=== PATIENT | male | born 1985 | race Caucasian/White ===

== ENCOUNTER → 2016-05-13 | Emergency (ER) | payer SELFPAY ==
--- NOTE | 2016-05-13 13:16 | ED NURSING NOTES ---
Clinical Report - Nurses [facility] [address] [place] [address] 05/13/2016 11:51 Patient: BARBARA GRANADOS TRIAGE Triage time 12:48 May 13 2016. Acuity: LEVEL 4. Chief Complaint: RIGHT EAR PAIN. --12:57 Shae Cook R.N. Weight: 108.8 kg estimated. Height/Length: 68 inches. BMI: 36.5. --12:47 Shae Cook R.N. Medications None. --12:53 Shae Cook R.N. Allergies No Known Drug Allergy. --12:52 Shae Cook R.N. History Arrived by private vehicle. Historian: patient. Accompanied by family. This started yesterday. He has had ear drainage. No fever, nasal discharge or sinus pain. 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 PAST MEDICAL HX: Negative. Immunizations: up-to-date. SOCIAL HX: Never smoker. No alcohol use or drug use. No infectious disease exposure. FALL RISK ASSESSMENT: Fall risk assessment completed. No fall risk identified. NUTRITIONAL RISK ASSESSMENT: The nutritional risk assessment revealed no deficiencies. FUNCTIONAL ASSESSMENT: Functional assessment: no impairments noted. LEARNING NEEDS ASSESSMENT: The learning needs assessment revealed no barriers. SKIN INTEGRITY ASSESSMENT: Skin integrity risk assessment completed. No skin integrity risk identified. --12:57 Shae Cook R.N. PROBLEMS: Back Injury. Back Pain. --12:53 Shae Cook R.N. ADDITIONAL SURGERIES: Shoulder Surgery. --12:53 Shae Cook R.N. Interventions ID band on patient. To room. --12:57 Shae Cook R.N. PHYSICAL ASSESSMENT GENERAL / NEURO / PSYCH: Alert. Appears in no acute distress. HEENT: No facial asymmetry noted. Pain upon movement of the right auricle. Left ear within normal limits. RESPIRATORY: Respirations not labored. CVS: Capillary refill less than 2 seconds. SKIN: Skin is warm and dry. --12:57 Shae Cook R.N. NURSING PROGRESS NOTES Two patient identifiers checked. Call light placed in reach. Side rails up. Bed placed in lowest position. Brakes of bed on. Patient ready for evaluation. --12:58 Shae Cook R.N. DISPOSITION / DISCHARGE Condition at departure: improved. No learning barriers present. Discharge instructions provided and reviewed with the family. Reviewed referral to a primary care physician. The patient was discharged home. He left the Emergency Department ambulatory and via private vehicle. FALL RISK ASSESSMENT: Fall risk assessment completed. No fall risk identified. --22:39 Shae Cook R.N. Locked/Released at 05/13/2016 22:39 by Shae Cook R.N.
--- NOTE | 2016-05-13 13:16 | ED CLINICAL REPORT ---
Clinical Report - Physicians/Mid Levels [facility] [address] [place] [address] 05/13/2016 11:51 Patient: BARBARA GRANADOS Time Seen: 12:51; initial patient contact. Arrived- By private vehicle. Historian- patient. HISTORY OF PRESENT ILLNESS Chief Complaint: EARACHE. HEARING LOSS. Modifying factors. Not worsened by anything. Not relieved by anything. This started today man with daughter interpreting states he has right ear pain and pressure with inability to hear for several days. and is still present. Location- right ear. The pain is described as moderate. The patient has had ear pain and hearing loss. No ear drainage, nasal discharge or congestion or sinus pressure. Similar symptoms previously: Recent medical care: Not recently seen/assessed. REVIEW OF SYSTEMS No fever or chills. All systems otherwise negative, except as recorded above. PAST HISTORY See nurses notes. Problems: Back Injury. Back Pain. Medications: None. Allergies: No Known Drug Allergy. SOCIAL HISTORY No alcohol use or drug use. FAMILY HISTORY Negative. ADDITIONAL NOTES The nursing notes have been reviewed with agreement regarding the chief complaint, HPI, ROS, PMH and patient medications and allergies. PHYSICAL EXAM Appearance: Alert. No acute distress. Ear (left): Left ear normal. Left tympanic membrane normal. Ear (right): There is cerumen impaction in the external canal. Right ear normal. Nose: Nose normal. Throat: Pharynx normal. Neck: Normal inspection. Neck supple. PROGRESS AND PROCEDURES Removal of Ear Cerumen: The patient was cooperative. Oil instilled prior to procedure. Removal of cerumen from right ear using syringe irrigation was performed successfully. Following the procedure the patient was stable. No complications. Course of Care: Patient is stable. The patient's symptoms are now gone. Physical exam findings are improved. CLINICAL IMPRESSION Impacted cerumen right ear. INSTRUCTIONS Warnings: Further evaluation is necessary. It is very important to follow up with a physician. Prescription Medications: Domeboro otic solution: instill 5 drops into the affected ear four times daily for 5 days until symptoms improve. Dispense one (1) bottle. One refill. Substitution is permissible. Understanding of the discharge instructions verbalized by patient and family. (Electronically signed by Xiomara Bruce PA-C 05/13/2016 22:25)
--- NOTE | 2016-05-13 13:16 | ED NURSING NOTES ---
Clinical Report - Nurses [facility] [address] [place] [address] 05/13/2016 11:51 Patient: BARBARA GRANADOS TRIAGE Triage time 12:48 May 13 2016. Acuity: LEVEL 4. Chief Complaint: RIGHT EAR PAIN. --12:57 Shae Cook R.N. Weight: 108.8 kg estimated. Height/Length: 68 inches. BMI: 36.5. --12:47 Shae Cook R.N. Medications None. --12:53 Shae Cook R.N. Allergies No Known Drug Allergy. --12:52 Shae Cook R.N. History Arrived by private vehicle. Historian: patient. Accompanied by family. This started yesterday. He has had ear drainage. No fever, nasal discharge or sinus pain. 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 PAST MEDICAL HX: Negative. Immunizations: up-to-date. SOCIAL HX: Never smoker. No alcohol use or drug use. No infectious disease exposure. FALL RISK ASSESSMENT: Fall risk assessment completed. No fall risk identified. NUTRITIONAL RISK ASSESSMENT: The nutritional risk assessment revealed no deficiencies. FUNCTIONAL ASSESSMENT: Functional assessment: no impairments noted. LEARNING NEEDS ASSESSMENT: The learning needs assessment revealed no barriers. SKIN INTEGRITY ASSESSMENT: Skin integrity risk assessment completed. No skin integrity risk identified. --12:57 Shae Cook R.N. PROBLEMS: Back Injury. Back Pain. --12:53 Shae Cook R.N. ADDITIONAL SURGERIES: Shoulder Surgery. --12:53 Shae Cook R.N. Interventions ID band on patient. To room. --12:57 Shae Cook R.N. PHYSICAL ASSESSMENT GENERAL / NEURO / PSYCH: Alert. Appears in no acute distress. HEENT: No facial asymmetry noted. Pain upon movement of the right auricle. Left ear within normal limits. RESPIRATORY: Respirations not labored. CVS: Capillary refill less than 2 seconds. SKIN: Skin is warm and dry. --12:57 Shae Cook R.N. NURSING PROGRESS NOTES Two patient identifiers checked. Call light placed in reach. Side rails up. Bed placed in lowest position. Brakes of bed on. Patient ready for evaluation. --12:58 Shae Cook R.N. DISPOSITION / DISCHARGE Condition at departure: improved. No learning barriers present. Discharge instructions provided and reviewed with the family. Reviewed referral to a primary care physician. The patient was discharged home. He left the Emergency Department ambulatory and via private vehicle. FALL RISK ASSESSMENT: Fall risk assessment completed. No fall risk identified. --22:39 Shae Cook R.N. Locked/Released at 05/13/2016 22:39 by Shae Cook R.N.
--- NOTE | 2016-05-13 13:16 | ED CLINICAL REPORT ---
Clinical Report - Physicians/Mid Levels [facility] [address] [place] [address] 05/13/2016 11:51 Patient: BARBARA GRANADOS Time Seen: 12:51; initial patient contact. Arrived- By private vehicle. Historian- patient. HISTORY OF PRESENT ILLNESS Chief Complaint: EARACHE. HEARING LOSS. Modifying factors. Not worsened by anything. Not relieved by anything. This started today man with daughter interpreting states he has right ear pain and pressure with inability to hear for several days. and is still present. Location- right ear. The pain is described as moderate. The patient has had ear pain and hearing loss. No ear drainage, nasal discharge or congestion or sinus pressure. Similar symptoms previously: Recent medical care: Not recently seen/assessed. REVIEW OF SYSTEMS No fever or chills. All systems otherwise negative, except as recorded above. PAST HISTORY See nurses notes. Problems: Back Injury. Back Pain. Medications: None. Allergies: No Known Drug Allergy. SOCIAL HISTORY No alcohol use or drug use. FAMILY HISTORY Negative. ADDITIONAL NOTES The nursing notes have been reviewed with agreement regarding the chief complaint, HPI, ROS, PMH and patient medications and allergies. PHYSICAL EXAM Appearance: Alert. No acute distress. Ear (left): Left ear normal. Left tympanic membrane normal. Ear (right): There is cerumen impaction in the external canal. Right ear normal. Nose: Nose normal. Throat: Pharynx normal. Neck: Normal inspection. Neck supple. PROGRESS AND PROCEDURES Removal of Ear Cerumen: The patient was cooperative. Oil instilled prior to procedure. Removal of cerumen from right ear using syringe irrigation was performed successfully. Following the procedure the patient was stable. No complications. Course of Care: Patient is stable. The patient's symptoms are now gone. Physical exam findings are improved. CLINICAL IMPRESSION Impacted cerumen right ear. INSTRUCTIONS Warnings: Further evaluation is necessary. It is very important to follow up with a physician. Prescription Medications: Domeboro otic solution: instill 5 drops into the affected ear four times daily for 5 days until symptoms improve. Dispense one (1) bottle. One refill. Substitution is permissible. Understanding of the discharge instructions verbalized by patient and family. (Electronically signed by Xiomara Bruce PA-C 05/13/2016 22:25)
--- NOTE | 2016-05-13 22:39 | ED MED RECONCILIATION SUMMARY ---
Patient: CHRISTOPH CHAPABARBARA BERRY Medication Reconciliation Report [facility] VisitID: [id number] [address] [place] [address] 30y, M Registration Date/Time: 05/13/2016 Weight: 108.8 kg Height/Length: 68 in. BMI: 36.5 ALLERGIES: No Known Drug Allergy The patient's Home Medications are listed below: NONE. The source(s) of the original Home Medication information: Not obtained. The following Medications were given to the patient in the Emergency Department: None. The following Medications were prescribed to the patient: Domeboro otic solution: instill 5 drops into the affected ear four times daily for 5 days until symptoms improve. Dispense one (1) bottle. One refill. Substitution is permissible. -- Xiomara Bruce PA-C
--- NOTE | 2016-05-13 22:39 | ED MAR SUMMARY ---
..... Medication Administration Record [facility] [address] [place] [id number] Patient: CHRISTOPH CHAPAITEZMICHAELMason HENDERSON Visit ID: [id number] 30y, M Weight: 108.8 kg Height/Length: 68 in BMI: 36.5 ALLERGIES: No Known Drug Allergy
--- NOTE | 2016-05-13 22:39 | ED DISCHARGE INSTRUCTIONS ---
Patient: CHRISTOPH PIRES BARBARA HENDERSON General Instructions [facility] VisitID: [id number] [place] [address] 30y, M Registration Date/Time: 05/13/2016 Impacted cerumen right ear. INSTRUCTIONS Warnings: Further evaluation is necessary. It is very important to follow up with a physician. Prescription Medications: Domeboro otic solution: instill 5 drops into the affected ear four times daily for 5 days until symptoms improve. Dispense one (1) bottle. One refill. Substitution is permissible. Understanding of the discharge instructions verbalized by patient and family. ADDITIONAL INFORMATION Earwax (Treated) Everyone produces earwax from the lining of the ear canal. It serves to lubricate and protect the ear. The wax that forms in the canal slowly moves toward the outside of the ear and falls out. Sometimes there will be a build-up of wax in the ear canal causing a blockage and loss of hearing. An ear wax buildup was removed from your ear today. Home Care Preventing Future Problems If you have a tendency to build up wax in the ear canal, you should clear the wax at home on a regular basis (about once every six months ) before it causes discomfort. Unless a prescription medicine was given, you may use an qvzc-psk-pcgwvfw product made for clearing earwax (such as Debrox or Murine Earwax Drops). These contain carbamide peroxide and are available [id number] in a kit with a small bulb syringe. To use: lie down with the blocked ear facing upward. Apply one dropper full of medicine and wait a few minutes. Wiggle the outer ear to get the solution to enter the canal. Lean over a sink or basin with the blocked ear turned downward. Use a rubber bulb syringe filled with LUKEWARM water to rinse the ear several times. Use gentle pressure only. You may need to repeat the irrigation several times before the wax flows out. If you are having trouble draining all of the water out of your ear canal after this procedure, you may put a few drops of rubbing alcohol into the ear canal. This will help evaporate the remaining water. Do Not DO NOT use cold water to rinse the ear since this will make you dizzy. DO NOT perform this procedure if you have an ear infection (ear pain, fever, or fluid draining from the ear). DO NOT perform this procedure if you have a punctured eardrum. DO NOT use cotton applicators (Q-tips), matches, toothpicks, magaly pins, keys or other objects to clean the ear canal. This can cause infection of the ear canal or rupture of the eardrum. Because of their size and shape, it is common for cotton applicators to push the ear wax deeper into the ear canal instead of removing it. This can make matters worse. Follow Up with your doctor or this facility as directed by our staff. Get Prompt Medical Attention if any of the following occur: Worsening ear pain Fever of 100.4F (38C) or higher, or as directed by your healthcare provider Hearing does not return to normal after three days of treatment Fluid drainage or bleeding from the ear canal Swelling, redness or tenderness of the outer ear Headache, neck pain or stiff neck You have been given the following additional information: Ear Wax, Treated (Electronically signed by Xiomara Bruce PA-C 05/13/2016 22:25)
--- NOTE | 2016-05-13 22:39 | ED DISCHARGE INSTRUCTIONS ---
Patient: CHRISTOPH PIRES BARBARA HENDERSON General Instructions [facility] VisitID: [id number] [place] [address] 30y, M Registration Date/Time: 05/13/2016 Impacted cerumen right ear. INSTRUCTIONS Warnings: Further evaluation is necessary. It is very important to follow up with a physician. Prescription Medications: Domeboro otic solution: instill 5 drops into the affected ear four times daily for 5 days until symptoms improve. Dispense one (1) bottle. One refill. Substitution is permissible. Understanding of the discharge instructions verbalized by patient and family. ADDITIONAL INFORMATION Earwax (Treated) Everyone produces earwax from the lining of the ear canal. It serves to lubricate and protect the ear. The wax that forms in the canal slowly moves toward the outside of the ear and falls out. Sometimes there will be a build-up of wax in the ear canal causing a blockage and loss of hearing. An ear wax buildup was removed from your ear today. Home Care Preventing Future Problems If you have a tendency to build up wax in the ear canal, you should clear the wax at home on a regular basis (about once every six months ) before it causes discomfort. Unless a prescription medicine was given, you may use an yier-ttp-xtaumsw product made for clearing earwax (such as Debrox or Murine Earwax Drops). These contain carbamide peroxide and are available fvmf-lfh-fqltbdg in a kit with a small bulb syringe. To use: lie down with the blocked ear facing upward. Apply one dropper full of medicine and wait a few minutes. Wiggle the outer ear to get the solution to enter the canal. Lean over a sink or basin with the blocked ear turned downward. Use a rubber bulb syringe filled with LUKEWARM water to rinse the ear several times. Use gentle pressure only. You may need to repeat the irrigation several times before the wax flows out. If you are having trouble draining all of the water out of your ear canal after this procedure, you may put a few drops of rubbing alcohol into the ear canal. This will help evaporate the remaining water. Do Not DO NOT use cold water to rinse the ear since this will make you dizzy. DO NOT perform this procedure if you have an ear infection (ear pain, fever, or fluid draining from the ear). DO NOT perform this procedure if you have a punctured eardrum. DO NOT use cotton applicators (Q-tips), matches, toothpicks, magaly pins, keys or other objects to clean the ear canal. This can cause infection of the ear canal or rupture of the eardrum. Because of their size and shape, it is common for cotton applicators to push the ear wax deeper into the ear canal instead of removing it. This can make matters worse. Follow Up with your doctor or this facility as directed by our staff. Get Prompt Medical Attention if any of the following occur: Worsening ear pain Fever of 100.4F (38C) or higher, or as directed by your healthcare provider Hearing does not return to normal after three days of treatment Fluid drainage or bleeding from the ear canal Swelling, redness or tenderness of the outer ear Headache, neck pain or stiff neck You have been given the following additional information: Ear Wax, Treated (Electronically signed by Xiomara Bruce PA-C 05/13/2016 22:25)
--- NOTE | 2016-05-13 22:39 | ED MED RECONCILIATION SUMMARY ---
Patient: CHRISTOPH CHAPABARBARA BERRY Medication Reconciliation Report [facility] VisitID: [id number] [address] [place] [address] 30y, M Registration Date/Time: 05/13/2016 Weight: 108.8 kg Height/Length: 68 in. BMI: 36.5 ALLERGIES: No Known Drug Allergy The patient's Home Medications are listed below: NONE. The source(s) of the original Home Medication information: Not obtained. The following Medications were given to the patient in the Emergency Department: None. The following Medications were prescribed to the patient: Domeboro otic solution: instill 5 drops into the affected ear four times daily for 5 days until symptoms improve. Dispense one (1) bottle. One refill. Substitution is permissible. -- Xiomara Bruce PA-C
--- NOTE | 2016-05-13 22:39 | ED MAR SUMMARY ---
..... Medication Administration Record [facility] [address], [place] [id number] Patient: CHRISTOPH CHAPAITEZMICHAELMason HENDERSON Visit ID: [id number] 30y, M Weight: 108.8 kg Height/Length: 68 in BMI: 36.5 ALLERGIES: No Known Drug Allergy
== END ==
LOC: ED SRH 11:47
DX: H61.21 Impacted cerumen, right ear (principal)

== ENCOUNTER 2016-08-27 17:58 | Emergency (ER) | payer SELFPAY ==
--- NOTE | 2016-08-27 19:55 | DIAGNOSTIC IMAGING REPORT ---
PROCEDURE: ABDOMEN/PELVIS WITH CONTRAST CLINICAL INDICATION: ABDOMINAL PAIN TECHNIQUE: 125 ml of Isovue 300 were injected intravenously and axial images were obtained of the abdomen and pelvis with sagittal and coronal reformations. COMPARISON: None. FINDINGS: ABDOMEN: Minor bibasilar atelectasis. Normal sized heart. No hiatal hernia. Mild hepatomegaly and diffuse hepatic hypodensity consistent with steatosis. Relative sparing in the gallbladder fossa. The gallbladder, adrenal glands, kidneys, pancreas and spleen are normal. The abdominal aorta is normal in its course and caliber. No atherosclerosis. There are no suspicious calcifications, retroperitoneal adenopathy or masses. The stomach, upper bowel loops, and mesentery are normal. Intact anterior abdominal wall. No free fluid or inflammation. Incidental note is made of left lower quadrant located cecum and appendix (which appears normal). PELVIS: Mildly prominent pelvic bowel loops with air fluid levels. No transition point to suggest obstruction. Slight thickening of the urinary bladder wall. The prostate gland, seminal vesicles, and pelvic vessels are normal. No adenopathy, free fluid, or pelvic mass. No inguinal hernias. IMPRESSION: 1. Findings of mild ileus in the lower quadrant bowel loops. No evidence for obstruction. This may indicate gastroenteritis. 2. Mild urinary bladder wall thickening. This could be cystitis, either reactive or infectious. 3. Hepatomegaly and hepatic steatosis. 4. Findings called to the emergency room. All CT scans at this facility use dose modulation, iterative reconstruction, and/or weight-based dosing when appropriate to reduce radiation dose to as low as reasonably achievable.
--- NOTE | 2016-08-27 21:28 | ED NURSING NOTES ---
Clinical Report - Nurses [facility] [address] [place] [address] 08/27/2016 17:59 Patient: BARBARA GRANADOS TRIAGE Triage time 1815. Acuity: LEVEL 3. Chief Complaint: TESTICULAR PAIN. Alert. No acute distress. --18:42 Lizzy Frances R.N. 18:30 08/27/16. BP: 149. HR: 81. RR: 18. O2 saturation: 97%. Temp: 98.4 F. Pain level now 8. --18:42 Lizzy Frances R.N. Weight: 99.7 kg stated. Height/Length: 66 inches Per Patient. BMI: 35.5. --18:40 Lizzy Frances R.N. Medications None. --18:35 Lizzy Frances R.N. Medication/allergy information source: the patient. --18:42 Lizzy Frances R.N. Allergies No Known Drug Allergy. --18:35 Lizzy Frances R.N. History Arrived by private vehicle. Historian: patient. Accompanied by family and daughter. Primary physician (dane). ( x 5 days on left with swelling. possibly lifted something heavy at the gym, difficulty urinating. feels slight burning and tingling). 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 PAST MEDICAL HX: Immunizations: up-to-date. SURGERY HX: ( right shoulder). SOCIAL HX: Never smoker. Occasional alcohol use. No drug use. No infectious disease exposure. FALL RISK ASSESSMENT: Fall risk assessment completed. No fall risk identified. NUTRITIONAL RISK ASSESSMENT: The nutritional risk assessment revealed no deficiencies. FUNCTIONAL ASSESSMENT: Functional assessment: no impairments noted. 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 --18:42 Lizzy Frances R.N. PROBLEMS: Hypertension. --18:37 Lizzy Frances R.N. Interventions ID and allergy band on patient. To treatment room. --18:42 Lizzy Frances R.N. PHYSICAL ASSESSMENT GENERAL / NEURO / PSYCH: Alert. Oriented X 4. Appears in no acute distress. GI / : Left-sided scrotal swelling with tenderness. Scrotal tenderness. SKIN: Skin is warm and dry. --18:42 Lizzy Frances R.N. NURSING PROGRESS NOTES 18:58 08/27/2016 Site #1 started via IV in the right hand with an 20g angiocath, with aseptic technique and good blood return; one attempt. Blood drawn: rainbow set. Saline lock flushed with 5 mL saline. --19:08 Lizzy Frances R.N. 19:00 08/27/2016 Started bag #1 500 mL IV Fluids IV NS (Saline); over 1 hour(s) via site #1. Allergies verified and confirmed 5 rights. IV patency established. IV site checked: no pain, redness, or swelling. IV flushed thoroughly pre- and post-medication administration. --19:10 Lizzy Frances R.N. 19:04 08/27/2016 Dilaudid (HYDROmorphone HCl PF) IVP 1 mg given. via site #1. Allergies verified, confirmed 5 rights and sedative warning given to the patient. IV patency established. IV site checked: no pain, redness, or swelling. IV flushed thoroughly pre- and post-medication administration. IVP given by RN. --19:09 Lizzy Frances R.N. 19:04 08/27/2016 Zofran (Ondansetron HCl) IVP 4 mg given. via site #1. Allergies verified and confirmed 5 rights. IV patency established. IV site checked: no pain, redness, or swelling. IV flushed thoroughly pre- and post-medication administration. IVP given by RN. --19:09 Lizzy Frances R.N. Care transferred and report received. --19:17 Wale Taylor R.N. ( pt in CT). --19:17 Wale Taylor R.N. ( US at bedside). --21:22 Wale Taylor R.N. DISPOSITION / DISCHARGE 21:48 08/27/2016 Site #1 removed upon discharge. Catheter intact. Bandaid applied. --21:53 Wale Taylor R.N. Condition at departure: improved. Discharge instructions provided and reviewed with the patient and family (brother driving pt home). Reviewed medication(s) side effects, precautions, dosing and course information. Prescription(s) given to the patient. Reviewed referrals (f/u per MD Saturday). Note given (per MD). Written instructions provided in Sami. The patient was discharged by the physician. He was discharged home and accompanied by family. He left the Emergency Department ambulatory and via private vehicle. Family member driving. ( pt dc ambulatory to lobby with steady gait, pt given rx and f/u. pts brother to drive pt home, pt verbalized understanding of dc instructions). --21:58 Wale Taylor R.N. 21:53 08/27/16. BP: 145/60. HR: 74. RR: 15. O2 saturation: 98%. Temp: 98.1 F. Pain level now: 06/25. --21:58 Wale Taylor R.N. Locked/Released at 08/27/2016 23:20 by Wale Taylor R.N.
--- NOTE | 2016-08-27 21:28 | ED NURSING NOTES ---
Clinical Report - Nurses [facility] [address] [place] [address] 08/27/2016 17:59 Patient: BARBARA GRANADOS TRIAGE Triage time 1815. Acuity: LEVEL 3. Chief Complaint: TESTICULAR PAIN. Alert. No acute distress. --18:42 Lizzy Frances R.N. 18:30 08/27/16. BP: 149. HR: 81. RR: 18. O2 saturation: 97%. Temp: 98.4 F. Pain level now 8. --18:42 Lizzy Frances R.N. Weight: 99.7 kg stated. Height/Length: 66 inches Per Patient. BMI: 35.5. --18:40 Lizzy Frances R.N. Medications None. --18:35 Lizzy Frances R.N. Medication/allergy information source: the patient. --18:42 Lizzy Frances R.N. Allergies No Known Drug Allergy. --18:35 Lizzy Frances R.N. History Arrived by private vehicle. Historian: patient. Accompanied by family and daughter. Primary physician (dane). ( x 5 days on left with swelling. possibly lifted something heavy at the gym, difficulty urinating. feels slight burning and tingling). 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 PAST MEDICAL HX: Immunizations: up-to-date. SURGERY HX: ( right shoulder). SOCIAL HX: Never smoker. Occasional alcohol use. No drug use. No infectious disease exposure. FALL RISK ASSESSMENT: Fall risk assessment completed. No fall risk identified. NUTRITIONAL RISK ASSESSMENT: The nutritional risk assessment revealed no deficiencies. FUNCTIONAL ASSESSMENT: Functional assessment: no impairments noted. 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 --18:42 Lizzy Frances R.N. PROBLEMS: Hypertension. --18:37 Lizzy Frances R.N. Interventions ID and allergy band on patient. To treatment room. --18:42 Lizzy Frances R.N. PHYSICAL ASSESSMENT GENERAL / NEURO / PSYCH: Alert. Oriented X 4. Appears in no acute distress. GI / : Left-sided scrotal swelling with tenderness. Scrotal tenderness. SKIN: Skin is warm and dry. --18:42 Lizzy Frances R.N. NURSING PROGRESS NOTES 18:58 08/27/2016 Site #1 started via IV in the right hand with an 20g angiocath, with aseptic technique and good blood return; one attempt. Blood drawn: rainbow set. Saline lock flushed with 5 mL saline. --19:08 Lizzy Frances R.N. 19:00 08/27/2016 Started bag #1 500 mL IV Fluids IV NS (Saline); over 1 hour(s) via site #1. Allergies verified and confirmed 5 rights. IV patency established. IV site checked: no pain, redness, or swelling. IV flushed thoroughly pre- and post-medication administration. --19:10 Lizzy Frances R.N. 19:04 08/27/2016 Dilaudid (HYDROmorphone HCl PF) IVP 1 mg given. via site #1. Allergies verified, confirmed 5 rights and sedative warning given to the patient. IV patency established. IV site checked: no pain, redness, or swelling. IV flushed thoroughly pre- and post-medication administration. IVP given by RN. --19:09 Lizzy Frances R.N. 19:04 08/27/2016 Zofran (Ondansetron HCl) IVP 4 mg given. via site #1. Allergies verified and confirmed 5 rights. IV patency established. IV site checked: no pain, redness, or swelling. IV flushed thoroughly pre- and post-medication administration. IVP given by RN. --19:09 Lizzy Frances R.N. Care transferred and report received. --19:17 Wale Taylor R.N. ( pt in CT). --19:17 Wale Taylor R.N. ( US at bedside). --21:22 Wale Taylor R.N. DISPOSITION / DISCHARGE 21:48 08/27/2016 Site #1 removed upon discharge. Catheter intact. Bandaid applied. --21:53 Wale Taylor R.N. Condition at departure: improved. Discharge instructions provided and reviewed with the patient and family (brother driving pt home). Reviewed medication(s) side effects, precautions, dosing and course information. Prescription(s) given to the patient. Reviewed referrals (f/u per MD Saturday). Note given (per MD). Written instructions provided in Wolof. The patient was discharged by the physician. He was discharged home and accompanied by family. He left the Emergency Department ambulatory and via private vehicle. Family member driving. ( pt dc ambulatory to lobby with steady gait, pt given rx and f/u. pts brother to drive pt home, pt verbalized understanding of dc instructions). --21:58 Wale Taylor R.N. 21:53 08/27/16. BP: 145/60. HR: 74. RR: 15. O2 saturation: 98%. Temp: 98.1 F. Pain level now: 06/25. --21:58 Wale Taylor R.N. Locked/Released at 08/27/2016 23:20 by Wale Taylor R.N.
--- NOTE | 2016-08-27 21:28 | ED CLINICAL REPORT ---
Clinical Report - Physicians/Mid Levels [facility] [address] [place] [address] 08/27/2016 17:59 Patient: BARBARA GRANADOS Time Seen: 18:13 Steve 12 2016. Arrived- By private vehicle. Historian- patient. CPT: ER phys charges level 4 (#[id number]). HISTORY OF PRESENT ILLNESS Chief Complaint: ABDOMINAL PAIN. This started about 5 days ADJUNCT FACULTY; Patient notes he has had the onset of this pain in the lower abdomen for the last 5 days. He had this once before 5 years ago and the doctor could not find a reason for it. Patient states he has pain in the lower suprapubic area abdomen on the left and right including pain into the right and left testicles. At its maximum, severity described as 8 / 10. When seen in the E.D., severity described as 8 / 10. Modifying factors- worsened by movement. Not relieved by anything. It is described as "pain" and well localized and it is described as located in the right pelvis and left pelvis and in the pelvic area. The patient has had nausea and loss of appetite. No vomiting or diarrhea. The patient has an additional complaint of abdominal pain Also right and left testicular pain. No recent travel. Similar symptoms previously: Once, as bad (5 years ago). Seen in clinic. Diagnosis: unknown. Recent medical care: Not recently seen/assessed. REVIEW OF SYSTEMS No constipation, black stools, hematemesis, difficulty with urination or pain with urination. No urinary frequency, fever, sore throat, chest pain or difficulty breathing. No cough, joint pain, skin rash, chills or back pain. No penile discharge. All systems otherwise negative, except as recorded above. PAST HISTORY ( right shoulder). Medications: None. Allergies: No Known Drug Allergy. SOCIAL HISTORY Never smoker. Occasional alcohol use. No drug use. ADDITIONAL NOTES The nursing notes have been reviewed. PHYSICAL EXAM Vital Signs: 08/27/2016 21:53 BP: 145/60. HR: 74. RR: 15. O2 saturation: 98%. Temp: 98.1 F. Pain level now: 4/10. Appearance: Alert. Patient in mild distress. Eyes: Eyes normal inspection. ENT: Pharynx normal. Neck: Normal inspection. CVS: Normal heart rate and rhythm. Heart sounds normal. Pulses normal. Respiratory: No respiratory distress. Breath sounds normal. Chest nontender. Abdomen: Soft. Moderate tenderness in the lower abdomen with guarding present. Abnormal bowel sounds: diminished. No mass. Back: Normal inspection. Skin: Skin warm. Normal skin color. No rash. Extremities: Extremities exhibit normal ROM. No lower extremity edema. Neuro: Oriented X 3. No motor deficit. No sensory deficit. Reflexes normal. LABS, X-RAYS, AND EKG Abdominal CT: Appendix normal. No diverticulitis. Bladder wall thickened . Ileus in lower bowel loops. No hernia. Abdominal CT performed with IV contrast. The study was independently viewed by me, interpreted by the radiologist and discussed with the radiologist. Laboratory Tests: UA-Culture if indicated: (CUCO: 08/27/2016 20:14) ( [facility] 08/27/2016 20:39) Final results Test Result Flag Units (Reference) URINE COLOR LIGHT YELLOW URINE APPEARANCE CLEAR URINE GLUCOSE NEGATIVE (NEGATIVE) URINE BILIRUBIN NEGATIVE (NEGATIVE) URINE KETONE NEGATIVE (NEGATIVE) URINE SPECIFIC GRAVITY <= 1.005 L (1.010-1.030) URINE PH 6.5 (5.0-8.0) URINE PROTEIN NEGATIVE (NEGATIVE) URINE UROBILINOGEN 0.2 EU/dL (0.2-1.0) URINE NITRITE NEGATIVE (NEGATIVE) URINE BLOOD NEGATIVE (NEGATIVE) URINE LEUK ESTERASE NEGATIVE (NEGATIVE) URINE RBC NONE SEEN rbc/hpf (0-1) URINE WBC RARE wbc/hpf (0-1) URINE EPITHELIAL CELLS RARE EPI/hpf (0-5) URINE BACTERIA NONE SEEN (NONE SEEN) URINE COMMENT CULT NOT INDICATED URINE CULTURES ARE SET-UP BASED ON THE FOLLOWING CRITERIA:POSITIVE NITRITEPOSITIVE LEUKOCYTE ESTERASEGREATER THAN 10 WHITE BLOOD CELLSMODERATE (2+) OR GREATER BACTERIA CBC w Diff: (CUCO: 08/27/2016 17:10) ( [facility] 08/27/2016 19:22) Final results Test Result Flag Units (Reference) WHITE BLOOD COUNT 10.6 K/uL (4.5-11.5) RED BLOOD COUNT 5.23 M/uL (4.50-5.90) HEMOGLOBIN 15.9 gm/dL (13.5-17.5) HEMATOCRIT 46.6 % (41.0-53.0) MEAN CELL VOLUME 89 fL (80-100) MEAN CORPUSCULAR HGB 30 pg (26-34) MEAN CORPUSCULAR HGB CONC 34 g/dL (31-37) RED CELL DISTRIBUTION WIDTH 14.2 % (11.6-14.8) PLATELET COUNT 215 K/uL (150-400) NEUTROPHIL % 53.1 % (50-75) LYMPH % 32.2 % (25-40) MONO % 9.4 % (3-14) EOSINOPHIL % 4.6 H % (0-4) BASOPHIL % 0.7 % (0-2) CMP: (CUCO: 08/27/2016 17:10) ( MsgRcvd 08/27/2016 19:26) Final results Test Result Flag Units (Reference) GLUCOSE 113 H mg/dL (70-110) BUN 10 mg/dL (7-18) CREATININE 0.9 mg/dL (0.6-1.3) Estimated GFR >60 mL/min Estimated GFR- >60 mL/min Note: Persistent reduction over 3 months in eGFR<60 mL/min/1.73 m2 defines CKD. Patients with eGFR values>=60 mL/min/1.73 m2 may also have CKD if evidence ofpersistent proteinuria. Additional information may be foundat www.kidney.org. SODIUM 140 mmol/L (136-145) POTASSIUM 3.7 mmol/L (3.5-5.1) CHLORIDE 103 mmol/L (98-107) CARBON DIOXIDE 27 mmol/L (21-32) CALCIUM 9.3 mg/dL (8.5-10.1) TOTAL PROTEIN 7.8 g/dL (6.4-8.2) ALBUMIN 3.8 g/dL (3.3-5.0) BILIRUBIN, TOTAL 0.3 mg/dL (0.0-1.0) ALKALINE PHOSPHATASE 105 U/L (46-116) AST (SGOT) 70 H U/L (15-37) ALT (SGPT) 237 H U/L (12-78) C-REACTIVE PROTEIN < 0.2 mg/dL (0.0-0.9) . PROGRESS AND PROCEDURES Course of Care: IV NS Dilaudid 1 mg V Zofran 4 mg IV Patient is stable. Symptoms much better. Patient/family counseled. Disposition: Discharged. Condition: stable and improved. CLINICAL IMPRESSION Acute noninfectious gastroenteritis. 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 Atypical position of the appendix on the left. INSTRUCTIONS No strenuous activity. Rest. Drink plenty of fluids. Warnings: Further evaluation is necessary. GENERAL WARNINGS: Return or contact your physician immediately if your condition worsens or changes unexpectedly, if not improving as expected, or if other problems arise. Prescription Medications: Oxycodone/APAP 5 mg/325 mg: take 1 tablet orally every 6 hours as needed for pain. Dispense fifteen (15). No refills. Follow-up: Follow up with your doctor Saturday in four days. Call for the next available appointment. Understanding of the discharge instructions verbalized by patient. (Electronically signed by Greg Ochoa MD 08/30/2016 22:55)
--- NOTE | 2016-08-27 21:28 | ED CLINICAL REPORT ---
Clinical Report - Physicians/Mid Levels [facility] [address] [place] [address] 08/27/2016 17:59 Patient: BARBARA GRANADOS Time Seen: 18:13 Steve 12 2016. Arrived- By private vehicle. Historian- patient. CPT: ER phys charges level 4 (#[id number]). HISTORY OF PRESENT ILLNESS Chief Complaint: ABDOMINAL PAIN. 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 He had this once before 5 years ago and the doctor could not find a reason for it. Patient states he has pain in the lower suprapubic area abdomen on the left and right including pain into the right and left testicles. At its maximum, severity described as 8 / 10. When seen in the E.D., severity described as 8 / 10. Modifying factors- worsened by movement. Not relieved by anything. It is described as "pain" and well localized and it is described as located in the right pelvis and left pelvis and in the pelvic area. The patient has had nausea and loss of appetite. No vomiting or diarrhea. The patient has an additional complaint of abdominal pain Also right and left testicular pain. No recent travel. Similar symptoms previously: Once, as bad (5 years ago). Seen in clinic. Diagnosis: unknown. Recent medical care: Not recently seen/assessed. REVIEW OF SYSTEMS No constipation, black stools, hematemesis, difficulty with urination or pain with urination. No urinary frequency, fever, sore throat, chest pain or difficulty breathing. No cough, joint pain, skin rash, chills or back pain. No penile discharge. All systems otherwise negative, except as recorded above. PAST HISTORY ( right shoulder). Medications: None. Allergies: No Known Drug Allergy. SOCIAL HISTORY Never smoker. Occasional alcohol use. No drug use. ADDITIONAL NOTES The nursing notes have been reviewed. PHYSICAL EXAM Vital Signs: 08/27/2016 21:53 BP: 145/60. HR: 74. RR: 15. O2 saturation: 98%. Temp: 98.1 F. Pain level now: 4/10. Appearance: Alert. Patient in mild distress. Eyes: Eyes normal inspection. ENT: Pharynx normal. Neck: Normal inspection. CVS: Normal heart rate and rhythm. Heart sounds normal. Pulses normal. Respiratory: No respiratory distress. Breath sounds normal. Chest nontender. Abdomen: Soft. Moderate tenderness in the lower abdomen with guarding present. Abnormal bowel sounds: diminished. No mass. Back: Normal inspection. Skin: Skin warm. Normal skin color. No rash. Extremities: Extremities exhibit normal ROM. No lower extremity edema. Neuro: Oriented X 3. No motor deficit. No sensory deficit. Reflexes normal. LABS, X-RAYS, AND EKG Abdominal CT: Appendix normal. No diverticulitis. Bladder wall thickened . Ileus in lower bowel loops. No hernia. Abdominal CT performed with IV contrast. The study was independently viewed by me, interpreted by the radiologist and discussed with the radiologist. Laboratory Tests: UA-Culture if indicated: (CUCO: 08/27/2016 20:14) ( [facility] 08/27/2016 20:39) Final results Test Result Flag Units (Reference) URINE COLOR LIGHT YELLOW URINE APPEARANCE CLEAR URINE GLUCOSE NEGATIVE (NEGATIVE) URINE BILIRUBIN NEGATIVE (NEGATIVE) URINE KETONE NEGATIVE (NEGATIVE) URINE SPECIFIC GRAVITY <= 1.005 L (1.010-1.030) URINE PH 6.5 (5.0-8.0) URINE PROTEIN NEGATIVE (NEGATIVE) URINE UROBILINOGEN 0.2 EU/dL (0.2-1.0) URINE NITRITE NEGATIVE (NEGATIVE) URINE BLOOD NEGATIVE (NEGATIVE) URINE LEUK ESTERASE NEGATIVE (NEGATIVE) URINE RBC NONE SEEN rbc/hpf (0-1) URINE WBC RARE wbc/hpf (0-1) URINE EPITHELIAL CELLS RARE EPI/hpf (0-5) URINE BACTERIA NONE SEEN (NONE SEEN) URINE COMMENT CULT NOT INDICATED URINE CULTURES ARE SET-UP BASED ON THE FOLLOWING CRITERIA:POSITIVE NITRITEPOSITIVE LEUKOCYTE ESTERASEGREATER THAN 10 WHITE BLOOD CELLSMODERATE (2+) OR GREATER BACTERIA CBC w Diff: (CUCO: 08/27/2016 17:10) ( [facility] 08/27/2016 19:22) Final results Test Result Flag Units (Reference) WHITE BLOOD COUNT 10.6 K/uL (4.5-11.5) RED BLOOD COUNT 5.23 M/uL (4.50-5.90) HEMOGLOBIN 15.9 gm/dL (13.5-17.5) HEMATOCRIT 46.6 % (41.0-53.0) MEAN CELL VOLUME 89 fL (80-100) MEAN CORPUSCULAR HGB 30 pg (26-34) MEAN CORPUSCULAR HGB CONC 34 g/dL (31-37) RED CELL DISTRIBUTION WIDTH 14.2 % (11.6-14.8) PLATELET COUNT 215 K/uL (150-400) NEUTROPHIL % 53.1 % (50-75) LYMPH % 32.2 % (25-40) MONO % 9.4 % (3-14) EOSINOPHIL % 4.6 H % (0-4) BASOPHIL % 0.7 % (0-2) CMP: (CUCO: 08/27/2016 17:10) ( MsgRcvd 08/27/2016 19:26) Final results Test Result Flag Units (Reference) GLUCOSE 113 H mg/dL (70-110) BUN 10 mg/dL (7-18) CREATININE 0.9 mg/dL (0.6-1.3) Estimated GFR >60 mL/min Estimated GFR- >60 mL/min Note: Persistent reduction over 3 months in eGFR<60 mL/min/1.73 m2 defines CKD. Patients with eGFR values>=60 mL/min/1.73 m2 may also have CKD if evidence ofpersistent proteinuria. Additional information may be foundat www.kidney.org. SODIUM 140 mmol/L (136-145) POTASSIUM 3.7 mmol/L (3.5-5.1) CHLORIDE 103 mmol/L (98-107) CARBON DIOXIDE 27 mmol/L (21-32) CALCIUM 9.3 mg/dL (8.5-10.1) TOTAL PROTEIN 7.8 g/dL (6.4-8.2) ALBUMIN 3.8 g/dL (3.3-5.0) BILIRUBIN, TOTAL 0.3 mg/dL (0.0-1.0) ALKALINE PHOSPHATASE 105 U/L (46-116) AST (SGOT) 70 H U/L (15-37) ALT (SGPT) 237 H U/L (12-78) C-REACTIVE PROTEIN < 0.2 mg/dL (0.0-0.9) . PROGRESS AND PROCEDURES Course of Care: IV NS Dilaudid 1 mg V Zofran 4 mg IV Patient is stable. Symptoms much better. Patient/family counseled. Disposition: Discharged. Condition: stable and improved. CLINICAL IMPRESSION Acute noninfectious gastroenteritis. 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 Atypical position of the appendix on the left. INSTRUCTIONS No strenuous activity. Rest. Drink plenty of fluids. Warnings: Further evaluation is necessary. GENERAL WARNINGS: Return or contact your physician immediately if your condition worsens or changes unexpectedly, if not improving as expected, or if other problems arise. Prescription Medications: Oxycodone/APAP 5 mg/325 mg: take 1 tablet orally every 6 hours as needed for pain. Dispense fifteen (15). No refills. Follow-up: Follow up with your doctor Saturday in four days. Call for the next available appointment. Understanding of the discharge instructions verbalized by patient. (Electronically signed by Greg Ochoa MD 08/30/2016 22:55)
--- NOTE | 2016-08-27 21:29 | ED ORDER SUMMARY ---
..... Patient: BARBARA GRANADOS OrderSheet [facility] VisitID: [id number] [address] [place] [address] 31y, M Registration Date/Time: 08/27/2016 ORDER SHEET Weight: 99.7 kg (stated) Allergies: No Known Drug Allergy GENERAL ORDERS: GC/Chlamydia, Urine (Urine, Clean Catch) (urine. ) Urgent (18:27 08/27/2016 Angy VOGT) (Ack 18:30 GEORGIANAeimadalyn ER Tech1) (20:56 LMuller) UA-Culture if indicated Urgent (18:28 08/27/2016 Angy VOGT) (Ack 18:30 Stacy ER Tech1) (20:56 LMuller) CBC w Diff Urgent (18:28 08/27/2016 Angy VOGT) (Ack 18:30 Stacy ER Tech1) (19:06 LAbe R.N.) CMP Urgent (18:28 08/27/2016 Angy VOGT) (Ack 18:30 Stacy ER Tech1) (19:06 LAbe R.N.) PCT (Procalcitonin) Urgent (18:28 08/27/2016 Angy VOGT) (Ack 18:30 Stacy ER Tech1) (20:56 LMuller) CRP Urgent (18:28 08/27/2016 Angy VOGT) (Ack 18:30 Stacy ER Tech1) (19:07 LAbe R.N.) CT Abd/Pel w Cont (No) (pending) Urgent (18:30 08/27/2016 Agny VOGT) (Ack 18:31 GEORGIANAeimadalyn ER Tech1) (21:53 LMuller) US Scrotum/Testicular Urgent (19:53 08/27/2016 Angy VOGT) (Ack 19:55 LMuller) (21:53 LMuller) MEDICATION ORDERS: IV FLUIDS: IV NS : initial bolus none -, then 500 mL/hr for 3h (NOW); Routine (18:28 08/27/2016 Angy VOGT) (Ack 19:06 LAbe R.N.) (19:10 LAbe R.N.) Dilaudid IV 1 mg (NOW) (18:28 08/27/2016 Angy VOGT) (Ack 19:06 LAbe R.N.) (19:09 LAbe R.N.) Zofran IV 4 mg (NOW) (18:29 08/27/2016 Angy VOGT) (Ack 19:06 LAbe R.N.) (19:09 LAbe R.N.) ORDER SHEET NOTES: [Electronically signed by Wale Taylor R.N. (23:20 08/27/2016)] [Electronically signed by Greg Ochoa MD (22:55 08/30/2016)] [Electronically locked/signed by Wale Taylor R.N. (23:20 08/27/2016)]
--- NOTE | 2016-08-27 21:29 | ED ORDER SUMMARY ---
..... Patient: BARBARA GRANADOS OrderSheet [facility] VisitID: [id number] [address] [place] [address] 31y, M Registration Date/Time: 08/27/2016 ORDER SHEET Weight: 99.7 kg (stated) Allergies: No Known Drug Allergy GENERAL ORDERS: GC/Chlamydia, Urine (Urine, Clean Catch) (urine. ) Urgent (18:27 08/27/2016 Angy VOGT) (Ack 18:30 GEORGIANAeimadalyn ER Tech1) (20:56 LMuller) UA-Culture if indicated Urgent (18:28 08/27/2016 Angy VOGT) (Ack 18:30 Stacy ER Tech1) (20:56 LMuller) CBC w Diff Urgent (18:28 08/27/2016 Angy VOGT) (Ack 18:30 Stacy ER Tech1) (19:06 LAbe R.N.) CMP Urgent (18:28 08/27/2016 Angy VOGT) (Ack 18:30 Stacy ER Tech1) (19:06 LAbe R.N.) PCT (Procalcitonin) Urgent (18:28 08/27/2016 Agny VOGT) (Ack 18:30 Stacy ER Tech1) (20:56 LMuller) CRP Urgent (18:28 08/27/2016 Angy VOGT) (Ack 18:30 Stacy ER Tech1) (19:07 LAbe R.N.) CT Abd/Pel w Cont (No) (pending) Urgent (18:30 08/27/2016 Angy VOGT) (Ack 18:31 GEORGIANAeimadalyn ER Tech1) (21:53 LMuller) US Scrotum/Testicular Urgent (19:53 08/27/2016 Angy VOGT) (Ack 19:55 LMuller) (21:53 LMuller) MEDICATION ORDERS: IV FLUIDS: IV NS : initial bolus none -, then 500 mL/hr for 3h (NOW); Routine (18:28 08/27/2016 Angy VOGT) (Ack 19:06 LAbe R.N.) (19:10 LAbe R.N.) Dilaudid IV 1 mg (NOW) (18:28 08/27/2016 Angy VOGT) (Ack 19:06 LAbe R.N.) (19:09 LAbe R.N.) Zofran IV 4 mg (NOW) (18:29 08/27/2016 Angy VOGT) (Ack 19:06 LAbe R.N.) (19:09 LAbe R.N.) ORDER SHEET NOTES: [Electronically signed by Wale Taylor R.N. (23:20 08/27/2016)] [Electronically signed by Greg Ochoa MD (22:55 08/30/2016)] [Electronically locked/signed by Wale Taylor R.N. (23:20 08/27/2016)]
--- NOTE | 2016-08-27 22:50 | DIAGNOSTIC IMAGING REPORT ---
PROCEDURE: US SCROTUM/TESTICLE INDICATION: SCROTAL PAIN TECHNIQUE: Pedraza scale and color Doppler sonographic images through the scrotum were obtained. COMPARISON: None. FINDINGS: RIGHT TESTICLE: Right testicle is of normal size (4.5 x 2.9 with 3.0 cm) with normal vascularity. Right epididymis demonstrates a 4 mm epididymal cyst. Minimal hydrocele. LEFT TESTICLE: Left testicle is of normal size (3.9 x 2.8 x 3.1 cm) with normal vascularity. Left epididymis is normal. Minimal hydrocele. IMPRESSION: 1. Normal testicles. 2. Minimal hydroceles. 3. Negative scrotal/testicular ultrasound.
--- NOTE | 2016-08-30 22:55 | ED MAR SUMMARY ---
..... Medication Administration Record [facility] [address] [place] [address] Patient: BARBARA GRANADOS Visit ID: [id number] 31y, M Weight: 99.7 kg Height/Length: 66 in BMI: 35.5 ALLERGIES: No Known Drug Allergy Start 19:08/27/2016 Lizzy Frances R.N. Medication Administered: IV NS (SALINE), Dose: IV Fluids over 1 hour(s), Dispensed: 500 mL bag, Site: #1 right hand. Medication Ordered: IV NS : initial bolus none -, then 500 mL/hr for 3h (NOW); Routine. Given :08/27/2016 Lizzy Frances R.N. Medication Administered: DILAUDID [IVP] (HYDROMORPHONE HCL PF), Dose: 1 mg IVP, Site: #1 right hand. Medication Ordered: Dilaudid IV 1 mg (NOW). Given :08/27/2016 Lizzy Frances R.N. Medication Administered: ZOFRAN [IVP] (ONDANSETRON HCL), Dose: 4 mg IVP, Site: #1 right hand. Medication Ordered: Zofran IV 4 mg (NOW).
--- NOTE | 2016-08-30 22:55 | ED MAR SUMMARY ---
..... Medication Administration Record [facility] [address] [place] [address] Patient: BARBARA GRANADOS Visit ID: [id number] 31y, M Weight: 99.7 kg Height/Length: 66 in BMI: 35.5 ALLERGIES: No Known Drug Allergy Start 19:08/27/2016 Lizzy Frances R.N. Medication Administered: IV NS (SALINE), Dose: IV Fluids over 1 hour(s), Dispensed: 500 mL bag, Site: #1 right hand. Medication Ordered: IV NS : initial bolus none -, then 500 mL/hr for 3h (NOW); Routine. Given :08/27/2016 Lizzy Frances R.N. Medication Administered: DILAUDID [IVP] (HYDROMORPHONE HCL PF), Dose: 1 mg IVP, Site: #1 right hand. Medication Ordered: Dilaudid IV 1 mg (NOW). Given :08/27/2016 Lizzy Frances R.N. Medication Administered: ZOFRAN [IVP] (ONDANSETRON HCL), Dose: 4 mg IVP, Site: #1 right hand. Medication Ordered: Zofran IV 4 mg (NOW).
--- NOTE | 2016-08-30 22:55 | ED DISCHARGE INSTRUCTIONS ---
Patient: BARBARA GRANADOS General Instructions [facility] VisitID: [id number] [address] [place] [address] 31y, M Registration Date/Time: 08/27/2016 Acute noninfectious gastroenteritis. 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 Atypical position of the appendix on the left. INSTRUCTIONS No strenuous activity. Rest. Drink plenty of fluids. Warnings: Further evaluation is necessary. GENERAL WARNINGS: Return or contact your physician immediately if your condition worsens or changes unexpectedly, if not improving as expected, or if other problems arise. Prescription Medications: Oxycodone/APAP 5 mg/325 mg: take 1 tablet orally every 6 hours as needed for pain. Dispense fifteen (15). No refills. Follow-up: Follow up with your doctor Saturday in four days. Call for the next available appointment. Understanding of the discharge instructions verbalized by patient. ADDITIONAL INFORMATION Food Poisoning Or Viral Gastroenteritis (6Yr-Adult) You have a stomach illness that is likely either food poisoning or viral gastroenteritis. Food poisoning occurs from1 to 24 hours after eating contaminated food and lasts up to 1 to 2 days. Viral gastroenteritis is commonly known as the stomach flu. It may last up to a week. Symptoms of both illnesses may include vomiting, diarrhea, fever, and stomach cramping. Antibiotics are not an effective treatment for either problem, but simple home treatment can give relief. Home Care: If symptoms are severe, rest at home for the next 24 hours. You may use acetaminophen (Tylenol) or ibuprofen (Motrin, Advil) to control fever, unless another medication was prescribed. [NOTE: If you have chronic liver or kidney disease or ever had a stomach ulcer or GI bleeding, talk with your doctor before using these medications. Do not give aspirin to anyone under 18 years of age who is ill with a fever.] Avoid tobacco and alcohol consumption. These may worsen your symptoms. If medicines for diarrhea or vomiting were prescribed, take these only as directed. Never take these without a healthcare providers approval. During the first12 to 24hours follow the diet below: BEVERAGES: Sport drinks like Gatorade, soft drinks without caffeine; thony mariah, mineral water (plain or flavored), decaffeinated tea and coffee. SOUPS: Clear broth, consomm and bouillon DESSERTS: Plain gelatin (Jell-O), popsicles and fruit juice bars. During the next 24 hours you may add the following to the above: Hot cereal, plain toast, bread, rolls, crackers Plain noodles, rice, mashed potatoes, chicken noodle or rice soup Unsweetened canned fruit (avoid pineapple), bananas Limit fat intake to less than 15 grams per day by avoiding margarine, butter, oils, mayonnaise, sauces, gravies, fried foods, peanut butter, meat, poultry, and fish. Limit fiber; avoid raw or cooked vegetables, fresh fruits (except bananas) and bran cereals. Limit caffeine and chocolate. No spices or seasonings except salt. Gradually resume a normal diet as you feel better and your symptoms lessen. Follow Up with your doctor as advised if you are not better in 2 days. If a stool (diarrhea) sample was taken, you may call in 2 days (or as directed) for the results. Get Prompt Medical Attention if any of the following occur: Increasing abdominal pain or constant lower right abdominal pain Continued vomiting (unable to keep liquids down) Frequent diarrhea (more than 5 times a day) Blood in vomit or stool (black or red color) Signs of dehydration: increased thirst, dark urine, reduced or no urine output, dry mouth and tongue, tireness or weakness, dizziness when standing, rapid breathinng New rash Fever of 100.4F (38C) oral or higher, not better with fever medication You have been given the following additional information: Food Poisoning Or Gastroenteritis (6Y-Adult) No strenuous activity. Rest. (Electronically signed by Greg Ochoa MD 08/30/2016 22:55)
--- NOTE | 2016-08-30 22:55 | ED MED RECONCILIATION SUMMARY ---
Patient: BARBARA GRANADOS Medication Reconciliation Report [facility] VisitID: [id number] [address] [place] [address] 31y, M Registration Date/Time: 08/27/2016 Weight: 99.7 kg Height/Length: 66 in. BMI: 35.5 ALLERGIES: No Known Drug Allergy The patient's Home Medications are listed below: NONE. The source(s) of the original Home Medication information: patient The following Medications were given to the patient in the Emergency Department: Dilaudid [IVP] IVP 1 mg, administered: 08/27/2016 7:04:00 PM Zofran [IVP] IVP 4 mg, administered: 08/27/2016 7:04:00 PM IV NS IV Fluids bolus 0, administered: 08/27/2016 7:00:00 PM The following Medications were prescribed to the patient: Oxycodone/APAP 5 mg/325 mg: take 1 tablet orally every 6 hours as needed for pain. Dispense fifteen (15). No refills. -- Greg Ochoa MD
--- NOTE | 2016-08-30 22:55 | ED MED RECONCILIATION SUMMARY ---
Patient: BARBARA GRANADOS Medication Reconciliation Report [facility] VisitID: [id number] [address] [place] [address] 31y, M Registration Date/Time: 08/27/2016 Weight: 99.7 kg Height/Length: 66 in. BMI: 35.5 ALLERGIES: No Known Drug Allergy The patient's Home Medications are listed below: NONE. The source(s) of the original Home Medication information: patient The following Medications were given to the patient in the Emergency Department: Dilaudid [IVP] IVP 1 mg, administered: 08/27/2016 7:04:00 PM Zofran [IVP] IVP 4 mg, administered: 08/27/2016 7:04:00 PM IV NS IV Fluids bolus 0, administered: 08/27/2016 7:00:00 PM The following Medications were prescribed to the patient: Oxycodone/APAP 5 mg/325 mg: take 1 tablet orally every 6 hours as needed for pain. Dispense fifteen (15). No refills. -- Greg Ochoa MD
== END 2016-08-27 21:54 | disposition home or self-care (01) ==
LOC: ED SRH 17:58
DX: K52.9 Noninfective gastroenteritis and colitis, unspecified (principal); I86.1 Scrotal varices; K92.9 Disease of digestive system, unspecified; I10 Essential (primary) hypertension
CPT/HCPCS: 90004; 90100; 91227; 91228; 91585; 93004; 95059